=== PATIENT | male | born 2000 | race Two or more races ===

== ENCOUNTER 2018-01-08 10:59 | Emergency (ER) | payer OTHER ==
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
[2018-01-08 11:12] VITALS: BP 142/92; PULSE 63; RESP 16; TEMP 98.1; O2SAT 98
== END 2018-01-08 12:08 | disposition home or self-care (01) ==
LOC: CED 10:59
DX: S80.02XA Contusion of left knee, initial encounter (principal); W22.8XXA Striking against or struck by other objects, initial encounter
CPT/HCPCS: 73562-PO; L1830